=== PATIENT | female | born 1980 | race Caucasian/White ===

== ENCOUNTER → 2024-04-25 12:57 | Outpatient (REF) | payer OTHER, SELFPAY | LOC: HWRAD 12:57 | PROVIDERS: ATTENDING PHYSICIAN Nurse Practitioner Adult Health; FAMILY PHYSICIAN Family Medicine | DX: N93.9 Abnormal uterine and vaginal bleeding, unspecified (principal); N80.9 Endometriosis, unspecified; N92.4 Excessive bleeding in the premenopausal period | CPT/HCPCS: 76830; 76856 ==